=== PATIENT | male | born 2000 | race Caucasian/White ===

== ENCOUNTER 2022-07-14 12:16 | Emergency (ER) | payer BC, OTHER, SELFPAY ==
[2022-07-14 12:43] VITALS: BP 154/86; PULSE 84; RESP 18; TEMP 36.5; O2SAT 100
[2022-07-14 13:08] LABS: Basophils Percent Auto 0.4 % (0.2-1.2); Eosinophils Absolute Auto 0.2 K/mm3 (0-0.3); Eosinophils Percent Auto 3.7 % (0-4.4); Hematocrit 45.5 % (42.0-52.0); Hemoglobin 15.1 g/dL (14.0-18.0); Immature Granulocyte Absolute 0.01 K/mm3 (0.00-0.031); Immature Granulocyte Percent A 0.2 % (0-0.5); Lymphocytes Absolute Auto 1.51 K/mm3 (0.9-3.2); Lymphocytes Percent Auto 30.8 % (18.3-44.2); Mean Corpuscular HGB Conc 33.2 g/dl (32-36); Mean Corpuscular Hemoglobin 28.4 pg (26-34); Mean Corpuscular Volume 85.5 fl (80-100); Mean Platelet Volume 9.3 fl (7.4-10.4); Monocytes Absolute Auto 0.4 K/mm3 (0.1-0.6); Monocytes Percent Auto 7.9 % (2.6-8.5); Neutrophils Absolute Auto 2.8 K/mm3 (1.3-6.7); Platelet Count Result 314 k/mm3 (150-375); Red Blood Count 5.32 M/mm3 (4.6-6.20); Red Cell Distribution Width 12.9 % (11.5-14.5); White Blood Count 4.9 K/mm3 (4.5-10.0)
[2022-07-14 13:17] LABS: Alanine Aminotransferase 41 U/L (6-50); Albumin Level 4.8 g/dL (3.5-5.1); Alkaline Phosphatase 85 U/L (38-126); Anion Gap 10 mmol/L (8-16); Aspartate Amino Transferase 33 U/L (17-59); Bilirubin,Total 0.4 mg/dL (0.2-1.3); Blood Urea Nitrogen 25 mg/dL (9-20); Calcium 9.1 mg/dL (8.4-10.2); Carbon Dioxide 26 mmol/L (22-30); Chloride 105 mmol/L (98-107); Estimated CRCL calculation 193 ml/min; Estimated Glomerular Filt Rate > 60; Glucose 100 mg/dL (65-110); Potassium 4.4 mmol/L (3.4-5.0); Sodium 141 mmol/L (137-145)
[2022-07-14 13:19] LABS: Prothrombin Time 12.5 Seconds (11.1-14.7)
[2022-07-14 13:20] LABS: Partial Thromboplastin Time 29.7 SECONDS (22.3-36.8)
--- NOTE | 2022-07-14 14:27 | ED.GIBLEED ---
HPI - GI Bleed General Chief complaint: GI Bleed Stated complaint: blood in stool Time Seen by Provider: 07/14/22 14:14 History of Present Illness HPI Narrative: Patient is a 22-year-old male here for evaluation of bright red blood noted on the outside of his stool this morning. Patient states that he strained to have a bowel movement this morning and during his second bowel movement of the day he noted some bright red blood dripping in the bowl with a small blood clot. Denies history of previous similar sensation/bleeding. He has had no abdominal pain, fevers or chills, lightheadedness, nausea or vomiting. No family history of colon cancer. No blood thinners. Related Data Allergies Allergy/AdvReac Type Severity Reaction Status Date / Time No Known Allergies Allergy Verified 07/14/22 13:55 Review of Systems Review of Systems: Gen: Denies fevers or chills Eyes: Denies eye pain or visual change ENT: Denies congestion Respiratory: Denies shortness of breath or cough CV: Denies chest pain or palpitations GI: Denies abdominal pain nausea, emesis or diarrhea reports blood in stool. Denies burning, urgency, frequency or hematuria Musculoskeletal: Denies back pain or muscle pain Neuro: Denies numbness, tingling, weakness or focal weakness Skin: Denies rash Except as documented, all other systems reviewed and negative Exam Narrative: APPEARANCE: No acute distress, nontoxic, resting in bed EYES: EOMI HEENT: Normocephalic, atraumatic, OMM RESPIRATORY: No respiratory distress Clear to auscultation bilaterally with no rhonchi wheezing or rales. CARDIOVASCULAR: Regular rate and rhythm without murmurs rubs or gallops. ABDOMINAL: Soft, nontender, nondistended, no rebound or guarding : No blood noted or brisk bleed on rectal exam. No external hemorrhoids noted. Brown stool was collected without blood. MUSCULOSKELETAL: Moves all extremities. No clubbing, cyanosis or edema. NEURO: Awake and alert. Following commands, speech normal, no focal deficits SKIN:: Warm, dry. No rashes lesions or abrasions PSYCHIATRIC: Normal affect/mood, Course Vital Signs Vital signs: Vital Signs Temperature 97.7 F 07/14/22 12:43 Pulse Rate 84 07/14/22 12:43 Respiratory Rate 18 07/14/22 12:43 Blood Pressure 154/86 H 04/13/23 12:43 Pulse Oximetry 100 07/14/22 12:43 Oxygen Delivery Room Air 07/14/22 12:43 Temperature 97.7 F 07/14/22 12:43 Pulse Rate 84 07/14/22 12:43 Respiratory Rate 18 07/14/22 12:43 Blood Pressure 154/86 H 07/14/22 12:43 Pulse Oximetry 100 07/14/22 12:43 Oxygen Delivery Room Air 07/14/22 12:43 MDM - GI Bleed MDM Narrative Medical decision making narrative: 22-year-old male here for evaluation of blood noted in his stool today after straining to have bowel movement this morning. Patient did show me a picture of the concerning stool this morning, appears consistent with hemorrhoids. He has had no melena. External exam reveals no abnormalities or continued bleeding. His hemoglobin is normal. His vital signs are normal. No indication for intra-abdominal imaging at this time; no abdominal tenderness, nausea, vomiting or fevers. Advised patient to use Anusol suppositories as needed and follow-up with GI. We discussed return precautions and he voiced understanding Lab Data 07/14/22 13:00 07/14/22 13:00 Labs: Lab Results 07/14/22 07/14/22 07/14/22 Range/Units 13:00 13:00 13:00 WBC 4.9 (4.5-10.0) K/mm3 RBC 5.32 (4.6-6.20) M/mm3 Hgb 15.1 (14.0-18.0) g/dL Hct 45.5 (42.0-52.0) % MCV 85.5 (80-100) fl MCH 28.4 (26-34) pg MCHC 33.2 (32-36) g/dl RDW 12.9 (11.5-14.5) % Plt Count 314 (150-375) k/mm3 MPV 9.3 (7.4-10.4) fl Immature Gran % (Auto) 0.2 (0-0.5) % Neut % (Auto) 57.0 (45.5-73.1) % Lymph % (Auto) 30.8 (18.3-44.2) % [place] % (Auto) 7.9 (2.6-8.5) % Eos % (Auto) 3.7 (0-4.4) % [place]
[2022-07-14 14:38] VITALS: BP 145/84; PULSE 86; RESP 14; O2SAT 99
[2022-07-14 14:39] VITALS: BP 122/79; PULSE 71; RESP 16; O2SAT 98
== END 2022-07-14 14:39 | disposition home or self-care (01) ==
LOC: ANHED 14:42
PROVIDERS: Emergency Medicine; Emergency Provider Physician Assistant
DX: K64.9 Unspecified hemorrhoids (principal)
CPT/HCPCS: 36415; 80053; 85025; 85610; 85730; 86850; 86900; 86901; 99283